=== PATIENT | male | born 1965 | race Hispanic/Latino ===

== ENCOUNTER 2017-03-08 08:48 | Emergency (ER) | payer MEDICARE, OTHER ==
[2017-03-08 09:14] VITALS: BMI 40.2
[2017-03-08 09:18] VITALS: TEMP 98.1
[2017-03-08] MEDS ORDERED: Lidocaine 5% Patch TD STA (09:26)
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
[2017-03-08 11:25] VITALS: BP 134/58; PULSE 69; RESP 18; O2SAT 100
== END 2017-03-08 11:25 | disposition home or self-care (01) ==
LOC: ED 08:48
DX: M54.2 Cervicalgia (principal); R51 Headache; M62.838 Other muscle spasm

== ENCOUNTER 2018-11-01 09:14 | Emergency (ER) | payer MEDICARE ==
[2018-11-01 09:14] VITALS: BMI 40.2
[2018-11-01 09:36] VITALS: RESP 18; TEMP 98.4
--- NOTE | 2018-11-01 10:11 | ED PDOC ---
Arrival/HPI - General Chief Complaint: Lower Extremity Problem/Injury Time Seen by Provider: 11/01/18 09:15 Historian: Patient - History of Present Illness Narrative History of Present Illness (Text): 11/01/18 9:49 53 year old male, with past medical history of hypertension, presents to the ED complaining of left lower leg pain x 1 week. Patient states pain starts from the left knee and radiates down to his lower leg, associated with intermittent paresthesias at the level of the knee. Patient informs difficulty bearing weight and worsening symptoms with movement. Patient denies taking any medication for the pain. Patient denies any recent trauma or injury to the left leg. Patient denies any recent surgery or immobilization. Of note, patient did not take his HTN medication today. Patient denies any fevers, chills, headache, dizziness, changes in vision, chest pain, shortness of breath, abdominal pain, nausea, vomiting, back pain, neck pain, or any other complaints. Time/Duration: 1 week Symptom Onset: Gradual Symptom Course: Unchanged Activities at Onset: Light Context: Home Past Medical History - Provider Review Nursing Documentation Reviewed: Yes - Cardiac Hx Cardiac Disorders: Yes Hx Hypertension: Yes - Pulmonary Hx Respiratory Disorders: Yes Hx Chronic Obstructive Pulmonary Disease (COPD): Yes - Neurological Hx Neurological Disorder: No - HEENT Hx HEENT Disorder: No - Renal Hx Renal Disorder: No - Endocrine/Metabolic Hx Endocrine Disorders: No - Hematological/Oncological Hx Blood Disorders: No - Integumentary Hx Dermatological Disorder: No - Musculoskeletal/Rheumatological Hx Musculoskeletal Disorders: No - Gastrointestinal Hx Gastrointestinal Disorders: No - Genitourinary/Gynecological Hx Genitourinary Disorders: No - Psychiatric Hx Psychophysiologic Disorder: Yes Hx Bipolar Disorder: Yes Hx Depression: Yes Hx Substance Use: No - Surgical History Hx Gastric Bypass Surgery: Yes (lap band) Hx Orthopedic Surgery: Yes - Anesthesia Hx Anesthesia: Yes Hx Anesthesia Reactions: No Hx Malignant Hyperthermia: No - Suicidal Assessment Feels Threatened In Home Enviroment: No Family/Social History - Physician Review Nursing Documentation Reviewed: Yes Family/Social History: Unknown Family HX Smoking Status: Heavy Smoker > 10 Cigarettes Daily Hx Alcohol Use: No Hx Substance Use: No Allergies/Home Meds Allergies/Adverse Reactions: Allergies No Known Allergies Allergy (Verified 03/08/17 09:14) Home Medications: Home Meds Medication Instructions Recorded Confirmed Lisinopril 10 mg PO DAILY 01/21/14 03/08/17 Paxil 40 mg PO DAILY 01/21/14 03/08/17 Simvastatin 20 mg PO DAILY 01/21/14 03/08/17 Tamsulosin [Flomax] 0.4 mg PO DAILY 03/08/17 03/08/17 Thiothixene [Navane] 20 mg PO HS 03/08/17 03/08/17 Review of Systems - Physician Review All systems were reviewed & negative as marked: Yes - Review of Systems Constitutional: Normal. absent: Fevers Eyes: Normal. absent: Vision Changes ENT: Normal Respiratory: Normal. absent: SOB, Cough Cardiovascular: Normal. absent: Chest Pain Gastrointestinal: Normal. absent: Abdominal Pain, Diarrhea, Nausea, Vomiting Genitourinary Male: Normal. absent: Dysuria, Frequency, Urinary Output Changes Musculoskeletal: Other (left lower leg pain). absent: Back Pain, Neck Pain Skin: Normal. absent: Rash Neurological: Normal. absent: Headache, Dizziness, Focal Weakness, Gait Changes Endocrine: Normal Physical Exam Vital Signs Reviewed: Yes Vital Signs Temp Pulse Resp BP Pulse Ox 11/01/18 09:14 98.4 F 73 18 138/101 H 96 Temperature: Afebrile Blood Pressure: Hypertensive Pulse: Regular Respiratory Rate: Normal Appearance: Positive for: Well-Appearing, Non-Toxic, Comfortable Pain Distress: None Mental Status: Positive for: Alert and Oriented X 3 - Systems Exam Head: Present: Atraumatic, Normocephalic Pupils: Present: PERRL Extroacular Muscles: Present: EOMI Conjunctiva: Present: Normal Mouth: Present: Moist Mucous Membranes Neck: Present: Normal Range of Motion Respiratory/Chest: Present: Clear to Auscultation, Good Air Exchange. No: Respiratory Distress, Accessory Muscle Use Cardiovascular: Present: Regular Rate and Rhythm, Normal S1, S2. No: Murmurs Abdomen: No: Tenderness, Distention, Peritoneal Signs Back: Present: Normal Inspection. No: CVA Tenderness, Midline Tenderness, Paraspinal Tenderness Upper Extremity: Present: Normal Inspection, Normal ROM, NORMAL PULSES, Neurovascularly Intact, Capillary Refill < 2s. No: Cyanosis, Edema, Temperature Abnormalties Lower Extremity: Present: Edema (mild left anterior knee), NORMAL PULSES, Normal ROM, Tenderness (tenderness to left knee medial and lateral joint lines and over the achilles tendon), Neurovascularly Intact (distal pulses 2/2, strength 5/5, and sensation intact bilaterally), Capillary Refill < 2 s, Other (Vericose veins to bilateral lower extremity). No: CALF TENDERNESS, Swelling, Deformity, Temperature Abnormalties Neurological: Present: GCS=15, CN II-XII Intact, Speech Normal, Motor Func Grossly Intact, Normal Sensory Function, Gait Normal Skin: Present: Warm, Dry, Normal Color. No: Rashes Psychiatric: Present: Alert, Oriented x 3, Normal Insight, Normal Concentration Medical Decision Making ED Course and Treatment: 11/01/18 9:51 Impression: 53 year old male presents to the ED complaining of left lower extremity pain since 1 week. Plan: -- Toradol -- X-ray of left Ankle -- X-ray of Left Knee -- US of LE -- Fingerstick -- Reassess and disposition Prior Visits: Notes and results from previous visits were reviewed. Progress Notes: Prelim venous duplex negative for DVT XR show moderate joint effusion to knee and soft tissue swelling to ankle Reports decreased pain after medications. Fingerstick 317 Patient refusing IVF and insulin to treat incidental hyperglycemia. Asking to leave AMA. The patient is choosing to leave against medical advice. I have personally explained to the patient that choosing to do so may result in permanent bodily harm, disability, or . I have discussed at great length that without further evaluation and monitoring there may be unforeseen circumstances and/or deterioration causing permanent bodily harm or as a result of their choice. The patient is alert, oriented, and shows the mental capacity to make clear decisions regarding the patients health care at this time. The patient continues to wish to leave against medical advice. In light of the patients decision to leave against medical advice, follow-up has been arranged and the patient is aware of the importance to following up as instructed. The patient has been advised that they should return to the emergency room immediately if they change their mind at any time, or if their condition begins to change or worsen in any way. Patient given copies of XR reports and advised to followup with orthopedics. Educated in depth on the dangers of uncontrolled hyperglycemia and the importance of following up as soon as possible with PMD. - RAD Interpretation Narrative RAD Interpretations (Text): Left Knee XR: FINDINGS: Two views BONES: No acute displaced fracture. JOINTS: No dislocation. JOINT EFFUSION: Moderate to large suprapatellar joint effusion. OTHER FINDINGS: None. IMPRESSION: Moderate to large suprapatellar joint effusion. No acute displaced fracture or dislocation identified. If symptoms persist, or if there is continued clinical concern, x-ray follow-up in 7-10 days should be considered. Left Ankle XR: FINDINGS: BONES: No acute displaced fracture. Calcaneal enthesophyte/heel spur. JOINTS: No dislocation. SOFT TISSUES: Marked soft tissue swelling/edema. No evidence of radiopaque foreign body. OTHER FINDINGS: None. IMPRESSION: Marked soft tissue swelling/edema. No acute displaced fracture, dislocation, or significant joint effusion identified. If symptoms persist or if there is clinical concern, x-ray follow-up in 7-10 days should be considered. Radiology Orders: 11/01/18 09:49 ANKLE LEFT 3 VIEWS ROUTINE [RAD] Stat KNEE LEFT 2 VIEWS (AP & LAT) [RAD] Stat 11/01/18 09:50 DUPLEX LOWER EXTRM VEIN LEFT [US] Stat - Medication Orders Current Medication Orders: Discontinued Medications Ketorolac Tromethamine (Toradol) 60 mg IM ONCE ONE Stop: 11/01/18 10:01 - Scribe Statement The provider has reviewed the documentation as recorded by the Scribe Pablo Guy. All medical record entries made by the Scribe were at my direction and personally dictated by me. I have reviewed the chart and agree that the record accurately reflects my personal performance of the history, physical exam, medical decision making, and the department course for this patient. I have also personally directed, reviewed, and agree with the discharge instructions and disposition. Disposition/Present on Arrival - Present on Arrival Any Indicators Present on Arrival: No History of DVT/PE: No History of Uncontrolled Diabetes: No Urinary Catheter: No History of Decub. Ulcer: No History Surgical Site Infection Following: None - Disposition Have Diagnosis and Disposition been Completed?: No Diagnosis: Left against medical advice, Elevated blood pressure reading, Hyperglycemia, Leg pain, left Disposition: AGAINST MEDICAL ADVICE Disposition Time: 11:20 Condition: STABLE Discharge Instructions (ExitCare): High Blood Pressure in Adults, Hyperglycemia, Adult, The ABCs of Diabetes, Leaving Against Medical Advice Additional Instructions: Followup with primary doctor today Take home medications as prescribed Followup with orthopedic doctor within 2 days Rest, no strenuous activity Please return if you wish to be re-evaluated or if new/worsening symptoms develop Prescriptions: Naproxen [Naprosyn] 500 mg PO DAILY PRN #14 tablet PRN Reason: Pain, Moderate (4-7) Referrals: Mena Noble MD [Primary Care Provider] - Follow up with primary Kim Lopez MD [Staff Provider] - Follow up with primary Forms: [employer] (Kiswahili)
--- NOTE | 2018-11-01 10:50 | RAD ---
PROCEDURE: Left Knee Radiographs. HISTORY: leg pain COMPARISON: None available. FINDINGS: Two views BONES: No acute displaced fracture. JOINTS: No dislocation. JOINT EFFUSION: Moderate to large suprapatellar joint effusion. OTHER FINDINGS: None. IMPRESSION: Moderate to large suprapatellar joint effusion. No acute displaced fracture or dislocation identified. If symptoms persist, or if there is continued clinical concern, x-ray follow-up in 7-10 days should be considered.
--- NOTE | 2018-11-01 10:52 | RAD ---
PROCEDURE: Left Ankle Radiographs. HISTORY: leg pain COMPARISON: None available. FINDINGS: BONES: No acute displaced fracture. Calcaneal enthesophyte/heel spur. JOINTS: No dislocation. SOFT TISSUES: Marked soft tissue swelling/edema. No evidence of radiopaque foreign body. OTHER FINDINGS: None. IMPRESSION: Marked soft tissue swelling/edema. No acute displaced fracture, dislocation, or significant joint effusion identified. If symptoms persist or if there is clinical concern, x-ray follow-up in 7-10 days should be considered.
[2018-11-01] MEDS ORDERED: Sodium Chloride 0.9% 1,000 ML IV STA (10:58)
[2018-11-01 11:22] VITALS: BP 139/90; PULSE 88; O2SAT 98
--- NOTE | 2018-11-01 20:17 | US ---
PROCEDURE: Left lower extremity venous US HISTORY: Leg pain and swelling. Evaluate for DVT. PHYSICIAN(S): Ender Devries MD. TECHNIQUE: Duplex sonography and color-flow Doppler with graded compression were used to evaluate the deep venous system of the left lower extremity. FINDINGS: The visualized deep venous system of the left lower extremity is sonographically normal and compressible. Normal wave forms and augmentation are seen. There is no sonographic evidence for deep venous thrombosis in the visualized segments of the left lower extremity. IMPRESSION: 1. No sonographic evidence for deep venous thrombosis in the visualized segments of the left lower extremity.
== END 2018-11-01 11:23 | disposition left against medical advice (07) ==
LOC: ED 09:14
DX: I10 Essential (primary) hypertension (principal); R73.9 Hyperglycemia, unspecified; M79.605 Pain in left leg; J44.9 Chronic obstructive pulmonary disease, unspecified; Z98.84 Bariatric surgery status; F17.210 Nicotine dependence, cigarettes, uncomplicated
CPT/HCPCS: 73560; 73610; 82948; 93971; 96372; 99284; J1885